=== PATIENT | male | born 1985 | race Caucasian/White ===

== ENCOUNTER 2018-01-11 05:51 | Emergency (ER) | payer BC, OTHER ==
[2018-01-11] MEDS ORDERED: Nitroglycerin TAB 0.4 MG* 0.4 MG TAB SL ONE ×2 (06:03→06:18)
[2018-01-11] MEDS ORDERED: Aspirin 81 mg CHEW TAB* 81 MG TAB.CHEW PO ONE (06:03)
[2018-01-11] MEDS ORDERED: NS 0.9% 1000 ML* 1,000 ML IV ONE (06:07)
[2018-01-11 06:16] LABS: ABS Basophils 0.1 10^3/ul (0-0.2); ABS Eosinophils 0.3 10^3/ul (0-0.6); ABS Monocytes 0.5 10^3/ul (0-0.8); ABS Neutrophils 3.7 10^3/ul (1.5-7.7); ABS Nucleated RBC 0 10^3/ul; Hematocrit 42 % (42-52); Hemoglobin 14.8 g/dl (14.0-18.0); Lymphocyte % 47.2 % (25-47); Mean Corpuscular HGB Conc 36 g/dl (31-36); Mean Corpuscular Hemoglobin 31 pg (27-31); Mean Corpuscular Volume 88 fL (80-94); Mean Platelet Volume 6.8 um3 (7.4-10.4); Nucleated Red Blood Cells % 0; Platelet Count 284 10^3/ul (150-450); Red Blood Count 4.74 10^6/ul (4.0-5.4); Red Cell Distribution Width 13 % (10.5-15); White Blood Count 8.4 10^3/ul (3.5-10.8)
[2018-01-11 06:23] LABS: INR 0.94 (0.77-1.02)
[2018-01-11] MEDS ORDERED: Acetaminophen TAB* 325 MG PO ONE (06:25)
[2018-01-11 06:31] LABS: EGFR Non-African American 83.7 (>60)
[2018-01-11] MEDS ORDERED: Iohexol 300* (CONTRAST) 10 ML SDV IV ONE (08:33)
--- NOTE | 2018-01-11 09:17 | ECHO ---
Patient: QING CONDE [facility] Rec#: [id number] : 1985 Date: 01/11/2018 Age: 32y Height: 185.42 cm / 73.0 in Weight: 92.99 kg / 204.9 lbs Sex: M BSA: 2.17 Room#: ED-14 Admit Date#: 01/11/2018 Type: Inpatient Referring: Darian Doll MD Referring: Andreas Guillen MD Reading: Aris Meyer MD Tonsorial Artist: Lorri Rivera CINTHYA CC: Benji Cerda MD Transthoracic Echocardiogram Indication: CP BP: 108/78 HR: 50 Rhythm: Bradycardia Findings History: No PMHx. To ED today 10/10 CP. Technical Comments: The study quality is good. Completed at 0819. Left Ventricle: The left ventricular chamber size is normal. Septal wall hypertrophy is observed. Global left ventricular wall motion and contractility are within normal limits. There is normal left ventricular systolic function. The estimated ejection fraction is 55-60%. Normal left ventricular diastolic filling is observed. Left Atrium: The left atrial chamber size is normal. Right Ventricle: Moderator Band present. The right ventricular cavity size is normal. The right ventricular global systolic function is normal. Right Atrium: The right atrial cavity size is normal. Aortic Valve: The aortic valve is trileaflet. There is no evidence of aortic valve thickening. There is no evidence of aortic regurgitation. There is no evidence of aortic stenosis. Mitral Valve: The mitral valve leaflets appear normal. There is a trace of mitral regurgitation. Tricuspid Valve: The tricuspid valve leaflets are normal. There is trace tricuspid regurgitation. No pulmonary hypertension is noted. Pulmonic Valve: The pulmonic valve appears normal. There is trace to mild pulmonic regurgitation. There is no pulmonic stenosis. Pericardium: There is no significant pericardial effusion. Aorta: There is no dilatation of the ascending aorta. There is no dilatation of the aortic arch. There is no dilation of the aortic root. Pulmonary Artery: The main pulmonary artery is not well visualized. Venous: The inferior vena cava appears normal in size. There is a greater than 50% respiratory change in the inferior vena cava dimension. Conclusions There is normal left ventricular systolic function. The estimated ejection fraction is 55-60%. Global left ventricular wall motion and contractility are within normal limits. Normal cardiac chamber sizes. Functionally benign heart valves. There is no prior echocardiogram available to compare with at this time. Urgently ordered echo results discussed with referring physician, Dr. Guillen. Measurements Name Value Normal Range RVIDd (AP) 2D 2.9 cm (0.9 - 2.6) RVDdMajor (2D) 4.2 cm (2.2 - 4.4) RAd ISD 4CH 5 cm (3.4 - 4.9) RA (A4C)W 4.4 cm (2.9 - 4.6) IVSd (2D) 1.3 cm (0.6 - 1) LVPWd (2D) 1 cm (0.6 - 1) LVIDd (2D) 4.1 cm (3.6 - 5.4) LVIDs (2D) 2.9 cm - LV FS (2D) 28 % (25 - 45) Aortic Annulus 1.9 cm (1.4 - 2.6) Ao root diameter (2D) 3.2 cm (2.1 - 3.5) Ascending Ao 2.8 cm (2.1 - 3.4) Aortic arch 2.4 cm (1.8 - 3.4) Descending Ao 0.8 cm - LA dimension (AP) 2D 3.7 cm (2.3 - 3.8) LAd ISD 4CH 4.8 cm (2.9 - 5.3) LA ISD 4CH W 4 cm (2.5 - 4.5) Name Value Normal Range LA ESV SP 4CH (A/L) 48 ml - LA ESV SP 2CH (A/L) 48 ml - LA ESV BP (A/L) 48 ml - LA ESV BP (A/L) index 22.07 ml/m2 - LA ESV SP 4CH (MOD) 46 ml - LA ESV SP 2CH (MOD) 43 ml - Name Value Normal Range MV E-wave Vmax 0.8 m/sec - MV deceleration time 264 msec - MV A-wave Vmax 0.6 m/sec - MV E:A ratio 1.28 ratio - LV septal e' Vmax 0.12 m/sec - LV lateral e' Vmax 0.15 m/sec - LV E:e' septal ratio 6.67 ratio - LV E:e' lateral ratio 5.33 ratio - Name Value Normal Range AV Vmax 1 m/sec - AV VTI 24.4 cm - AV peak gradient 4.17 mmHg - AV mean gradient 2.05 mmHg - LVOT Vmax 0.9 m/sec - LVOT VTI 19.8 cm - LVOT peak gradient 3.3 mmHg - LVOT mean gradient 1.45 mmHg - Name Value Normal Range MR Vmax 4.4 m/sec - MR VTI 175 cm - Name Value Normal Range TR Vmax 2.1 m/sec - TR peak gradient 18 mmHg - RAP 3 mmHg - RVSP 21 mmHg - IVC diameter 1.9 cm - Name Value Normal Range PV Vmax 0.8 m/sec - PV peak gradient 2.47 mmHg -
--- NOTE | 2018-01-11 09:47 | RAD ---
Indication: Upper abdominal pain, elevated lipase Contrast: Administered 124.0 ml of OMNIPAQUE 300 mg/ml CT of the abdomen and pelvis was performed after oral and IV contrast administration. Coronal and sagittal reconstructed images were obtained. Prior exam dated 1125 was also reviewed. Lung bases demonstrate no pleural fluid, nodules or masses. Heart is of normal size without evidence of pericardial effusion. Liver is normal in size. No focal lesions or intrahepatic ductal dilatation is noted. The gallbladder demonstrates question of high density material in the dependent portion. Correlation with ultrasound is suggested. No wall thickening or pericholecystic fluid is noted. The pancreas demonstrates no mass or pancreatic duct dilatation. The spleen is normal in size. No adrenal masses are noted. The kidneys demonstrate symmetric nephrograms without focal lesions. No retroperitoneal lymphadenopathy is noted. Dilated loops of bowel are noted. The colon is filled with stool. CT of the pelvis demonstrates no retroperitoneal or pelvic lymphadenopathy. The urinary bladder is unremarkable. No hernias are noted. The appendix is visualized and is normal. No free fluid is identified. The prostate and seminal vesicles are unremarkable. The visualized bony structures are grossly unremarkable. IMPRESSION: No abnormal masses or fluid collections are noted. Question of cholelithiasis is noted. Correlation with ultrasound is suggested. No other masses or fluid collections are noted.
--- NOTE | 2018-01-11 11:07 | RAD ---
Indication: Right upper quadrant pain, elevated lipase. Real-time sonography of the right upper quadrant was performed. The liver is normal in size. No focal lesions or intrahepatic ductal tissue is noted. The gallbladder demonstrates no gallstones, pericholecystic fluid or wall thickening. The common duct is not evaluated. The right kidney measures 12.2 x 5.1 x 5.1 cm with no hydronephrosis. The pancreas is not visualized. IMPRESSION: No cholelithiasis or biliary duct dilatation is noted.
--- NOTE | 2018-01-11 11:31 | RAD ---
Indication: Lower chest pain. Single frontal view of the chest performed at 0611 hours was reviewed. Comparison is made with previous exam dated April 05, 2008. No mediastinal shift is noted. Heart is of normal size and configuration. Lung ch appear clear. IMPRESSION: NO ACTIVE CARDIOPULMONARY DISEASE IS NOTED.
[2018-01-11 11:52] VITALS: BP 129/84
--- NOTE | 2018-01-11 12:19 | ED ---
Vish Villeda Thomas, scribed for Darian Doll MD on 01/11/18 at 0942 . Progress - Progress Note Progress Note: This progress note is to document the results of imaging ordered by Dr. Guillen. Transthoracic Echocardiogram Interpreted by Dr. Aris Meyer, cardiology Conclusions: There is normal left ventricular systolic function. The estimated ejection fraction is 55-60%. Global left ventricular wall motion and contractility are within normal limits. Normal cardiac chamber sizes. Functionally benign heart valves. There is no prior echocardiogram available to compare with at this time. Urgently ordered echo results discussed with referring physician, Dr. Guillen. Dr. Doll has reviewed this report. CT ABD/PEL W Interpreted by radiologist. Impression: No abnormal masses or fluid collections are noted. Question of cholelithiasis is noted. Correlation with ultrasound is suggested. No other masses or fluid collections are noted. Dr. Doll has reviewed this report. ULTRASOUND GALL BLADDER Interpreted by radiologist Impression: No cholelithiasis or biliary duct dilatation is noted. Dr. Doll has reviewed this report. CXR Interpreted by radiologist. Impression: NO ACTIVE CARDIOPULMONARY DISEASE IS NOTED. Dr. Doll has reviewed this report. Course/Dx - Diagnoses Provider Diagnoses: Chest pain, Epigastric pain, Pancreatitis Discharge - Sign-Out/Discharge Documenting (check all that apply): Discharge - Discharge Plan Condition: Stable Disposition: HOME Patient Education Materials: Chest Pain (ED), Pancreatitis (ED), Epigastric Pain (ED) Referrals: Benji Cerda MD [Primary Care Provider] - Additional Instructions: FOLLOW UP WITH YOUR DOCTOR. RETURN TO THE EMERGENCY DEPARTMENT FOR ANY WORSENING OF YOUR CONDITION; PAIN, FEVER, SHORTNESS OF BREATH, YOU FEEL ILL OR QUESTIONS OR CONCERNS. - Billing Disposition and Condition Condition: STABLE Disposition: HOME The documentation as recorded by the Vish owens Thomas accurately reflects the service I personally performed and the decisions made by , Darian Doll MD.
--- NOTE | 2018-01-11 12:19 | ED ---
Sosa Villeda Jason, scribed for Darian Doll MD on 01/11/18 at 0629 . HPI Chest Pain - HPI Summary HPI Summary: This patient is a 32 year old M presenting to [facility] with a chief complaint of chest pain since 514 today. He states that he woke up with epigastric and lower chest pain that wraps all the way around the body. When it began the pain severity was 10/10. Now in the ED, the pain is 6/10 In severity. With 1 dose of nitroglycerin, the pain is now 4/10 in severity. Patient has taken Tylenol and codeine, but denies any use of cocaine and hx of heartburn. Symptoms aggravated by nothing. Symptoms alleviated by nothing. Patient reports nausea and diaphoresis - History of Current Complaint Chief Complaint: EDChestPainROMI Time Seen by Provider: 01/11/18 05:57 Hx Obtained From: Patient Time of Onset: 05:15 Timing: Constant Pain Intensity: 6 Pain Scale Used: 0-10 Numeric Chest Pain Location: Lower Sternal Chest Pain Radiates: Yes Chest Pain Radiates To:: Back Aggravating Factor(s): Nothing Alleviating Factor(s): Nothing Associated Signs and Symptoms: Positive: Other: - epigastric pain, nausea, diaphoresis - Allergy/Home Medications Allergies/Adverse Reactions: Allergies Allergy/AdvReac Type Severity Reaction Status Date / Time No Known Allergies Allergy Verified 01/11/18 06:02 Home Medications: Home Medications Acetaminoph/Cod 120/12 mg LIQ* [Tylenol/Codeine 120/12 LIQ*] 5 ml PO Q6HR PRN [History Confirmed 01/11/18] PMH/Surg Hx/FS Hx/Imm Hx Previously Healthy: Yes Endocrine/Hematology History: Denies: Hx Diabetes Cardiovascular History: Denies: Hx Hypotension - Immunization History Date of Tetanus Vaccine: unk Date of Influenza Vaccine: none Infectious Disease History: No Infectious Disease History: Denies: Traveled Outside the [place] in Last 30 Days - Family History Known Family History: Negative: Blood Disorder - Social History Alcohol Use: Rare Substance Use Type: Reports: None Smoking Status (MU): Never Smoked Tobacco Review of Systems Positive: Skin Diaphoresis Positive: Chest Pain Positive: Nausea, Other - epigastric pain All Other Systems Reviewed And Are Negative: Yes Physical Exam - Summary Physical Exam Summary: General: well-appearing, patient is in mild pain distress. Skin: warm, color reflects adequate perfusion, dry Head: normal Eyes: EOMI, SAUNDRA ENT: normal Neck: supple, nontender Respiratory: CTA, breath sounds present Cardiovascular: RRR Abdomen: soft, Mild tenderness to palpation in the epigastrium. Bowel: present Musculoskeletal: normal, strength/ROM intact Neurological: normal, sensory/motor intact, A&O x3 Psychological: affect/mood appropriate Triage Information Reviewed: Yes Vital Signs On Initial Exam: Initial Vitals Temp Pulse Resp BP Pulse Ox 96.6 F 56 18 128/79 99 01/11/18 05:58 01/11/18 05:58 01/11/18 05:58 01/11/18 05:58 01/11/18 05:58 Vital Signs Reviewed: Yes Diagnostics - Vital Signs Vital Signs Temp Pulse Resp BP Pulse Ox 01/11/18 05:58 96.6 F 56 18 128/79 99 - Laboratory Lab Results: Lab Results 01/11/18 Range/Units 06:04 WBC 8.4 (3.5-10.8) 10^3/ul RBC 4.74 (4.0-5.4) 10^6/ul Hgb 14.8 (14.0-18.0) g/dl Hct 42 (42-52) % MCV 88 (80-94) fL MCH 31 (27-31) pg MCHC 36 (31-36) g/dl RDW 13 (10.5-15) % Plt Count 284 (150-450) 10^3/ul MPV 6.8 L (7.4-10.4) um3 Neut % (Auto) 43.8 (38-83) % Lymph % (Auto) 47.2 H (25-47) % [place] % (Auto) 5.4 (0-7) % Eos % (Auto) 3.0 (0-6) % Baso % (Auto) 0.6 (0-2) % Absolute Neuts (auto) 3.7 (1.5-7.7) 10^3/ul Absolute Lymphs (auto) 4.0 (1.0-4.8) 10^3/ul Absolute Monos (auto) 0.5 (0-0.8) 10^3/ul Absolute Eos (auto) 0.3 (0-0.6) 10^3/ul Absolute Basos (auto) 0.1 (0-0.2) 10^3/ul Absolute Nucleated RBC 0 10^3/ul Nucleated RBC % 0 Result Diagrams: 01/11/18 06:04 01/11/18 06:04 Lab Statement: Any lab studies that have been ordered have been reviewed, and results considered in the medical decision making process. - Radiology CXR Radiology Interpretation Completed By: ED Physician - NAD - EKG 0547 Cardiac Rate: Bradycardia EKG Rhythm: Sinus Bradycardia - 52 ST Segment: Non-Specific - Borderline ST elevation, anterior and lateral leads Ectopy: None EKG Interpretation: no reciprocal changes 0627 Cardiac Rate: Bradycardia EKG Rhythm: Sinus Bradycardia ST Segment: Non-Specific - borderline ST elevation in the anterior and lateral leads Ectopy: None EKG Interpretation: no reciprocal changes EKG Comparison: No Significant Change - from EKG at 0547 on 01/11/2018 Chest Pain Course/Dx - Course Course Of Treatment: PATIENT IS TENDER IN THE EPIGASTRIUM. At 0540, Dr. Doll discussed the patient's condition with Dr. Fenton, who will consult the patient. DR FENTON AGREES THE EKG APPEARS TO BE EARLY REPOL. HE RECOMMENDED PAIN CONTROL AND AN ECHO. CHEST PAIN GONE IN ED AFTER APPROXIMATELY 30 MINUTES. THE FIRST EKG WAS WITH 6/10 PAIN, THE SECOND WAS PAIN FREE AND I DID NOT SEE ANY CHANGE BETWEEN THE 2 EKGS. THE LIPASE IS ELEVATED AND THE CT SHOWED THE POSSIBILITY IF SLUDGE IN THE GB. RESULTS DISCUSSED WITH THE PATIENT AND HIS FAMILY. HE DECLINED THE 3RD TROPONIN AND PLANS TO F/U WITH HIS PMD; RETURN IF WORSE. CRITICAL CARE TIME LESS THAN 30 MINUTES. - Diagnoses Provider Diagnoses: Chest pain, Epigastric pain, Pancreatitis Discharge - Sign-Out/Discharge Documenting (check all that apply): Discharge - Discharge Plan Condition: Stable Disposition: HOME Patient Education Materials: Chest Pain (ED), Pancreatitis (ED), Epigastric Pain (ED) Referrals: Benji Cerda MD [Primary Care Provider] - Additional Instructions: FOLLOW UP WITH YOUR DOCTOR. RETURN TO THE EMERGENCY DEPARTMENT FOR ANY WORSENING OF YOUR CONDITION; PAIN, FEVER, SHORTNESS OF BREATH, YOU FEEL ILL OR QUESTIONS OR CONCERNS. - Billing Disposition and Condition Condition: STABLE Disposition: HOME The documentation as recorded by the Sosa owens Jason accurately reflects the service I personally performed and the decisions made by me, Darian Doll MD.
== END 2018-01-11 12:17 | disposition home or self-care (01) ==
LOC: ED 05:51
DX: R07.89 Other chest pain (principal); R10.13 Epigastric pain; K85.90 Acute pancreatitis without necrosis or infection, unspecified; R00.1 Bradycardia, unspecified; R11.0 Nausea; R61 Generalized hyperhidrosis
CPT/HCPCS: 36415; 71045; 74177; 76705; 80053; 82550; 82553; 83605; 83690; 83735; 83880; 84443; 84484; 85025; 85379; 85610; 85730; 86140; 93005; 93306; 96360; 99284; A9270-GY; Q9967